=== PATIENT | male | born 1980 | race African-American/Black ===

== ENCOUNTER 2019-10-05 19:58 | Emergency (ER) | payer SELFPAY | END 2019-10-05 20:54 | disposition home or self-care (01) | LOC: NAV ERS 19:58 | DX: Z20.2 Contact with and (suspected) exposure to infections with a predominantly sexual mode of transmission (principal) | CPT/HCPCS: 99281 ==

== ENCOUNTER 2021-05-22 16:27 | Emergency (ER) | payer SELFPAY ==
[2021-05-22] MEDS ORDERED: Boostrix 0.5 ML (Tdap) VIAL ONE (16:40)
[2021-05-22] MEDS ORDERED: Lidocaine 1% (PF) 30 ML VIAL ONE ×2 (16:43→16:44)
[2021-05-22] MEDS ORDERED: Lidocaine 1% w/Epinephrine 1:100K 20 ML VIAL ONE (16:43)
[2021-05-22] MEDS ORDERED: Ibuprofen 800 MG TAB ONE (17:06)
== END 2021-05-22 17:12 | disposition home or self-care (01) ==
LOC: NAV ERS 16:27
DX: S61.212A Laceration without foreign body of right middle finger without damage to nail, initial encounter (principal); Z23 Encounter for immunization; W26.8XXA Contact with other sharp object(s), not elsewhere classified, initial encounter
CPT/HCPCS: 12001; 90471; 90715; J2001